=== PATIENT | male | born 1960 ===

== ENCOUNTER 2019-03-25 18:17 | Inpatient (IN) | payer SELFPAY ==
[2019-03-25] MEDS ORDERED: fentaNYL (PF) 50 MCG/ML 2 ML AMP ONE (18:31)
[2019-03-25] MEDS: MIDAZOLAM PF (FBP) 2 MG/2 ML VIAL IV ONE ×4 (18:35→19:11)
[2019-03-25] MEDS: fentaNYL (PF) 50 MCG/ML 2 ML AMP IV ONE ×2 (18:35→18:49)
[2019-03-25] MEDS ORDERED: LIDOCAINE 1% INJ 10MG/ML (20 ML MDV) SQ ONE (18:40)
[2019-03-25] MEDS ORDERED: METOPROLOL TARTRATE 5 MG/5 ML VIAL IVP ONE ×2 (18:40→18:44)
[2019-03-25] MEDS ORDERED: SODIUM CHLORIDE 0.9% 500 ML 500 ML IV ONE (18:48)
[2019-03-25] MEDS ORDERED: BIVALIRUDIN BOLUS 250 MG/50 ML IV ONE (19:00)
[2019-03-25] MEDS ORDERED: SODIUM CHLORIDE 0.9% IV ONE (19:01)
[2019-03-25] MEDS ORDERED: BIVALIRUDIN IV ONE (19:01)
[2019-03-25] MEDS ORDERED: IOPAMIDOL-370 125ML BTL INJ ONE ×2 (19:03→20:10)
[2019-03-25] MEDS ORDERED: FUROSEMIDE 10 MG/ML 4 ML VIAL ONE (19:10)
[2019-03-25] MEDS: FUROSEMIDE 10 MG/ML 4 ML VIAL IV ONE ×2 (19:11→19:37)
[2019-03-25] MEDS ORDERED: MORPHINE SULFATE 4 MG/ML SYRINGE ONE (19:15)
[2019-03-25] MEDS ORDERED: ONDANSETRON 4 MG/2 ML VIAL ONE ×2 (19:17→19:21)
[2019-03-25] MEDS ORDERED: ONDANSETRON 4 MG/2 ML VIAL IVP ONE (19:19)
[2019-03-25] MEDS ORDERED: NOREPINEPHRINE 1 MG/ML 4 ML VIAL IV ONE (19:35)
[2019-03-25] MEDS ORDERED: SODIUM CHLORIDE 0.9% 1,000 ML BAG ONE (19:35)
[2019-03-25] MEDS ORDERED: EPINEPHrine 1 MG/ML (MDV) 30 ML VIAL ONE (19:35)
[2019-03-25] MEDS ORDERED: SODIUM BICARB 8.4% 50 ML SYR (1 MEQ/ML) ONE (19:35)
[2019-03-25] MEDS ORDERED: ATROPINE SULFATE 0.1 MG/ML 10ML SYRINGE ONE (19:35)
[2019-03-25] MEDS ORDERED: EPINEPHrine 10 ML SYRINGE (0.1 MG/ML) ONE (19:35)
[2019-03-25] MEDS ORDERED: SODIUM CHLORIDE 0.9% 250 ML BAG ONE ×2 (19:35)
[2019-03-25] MEDS ORDERED: BIVALIRUDIN 250 MG in SODIUM CHLORIDE 0.9% 50 ML IV ONE (20:00)
[2019-03-25] MEDS ORDERED: SODIUM CHLORIDE 0.9% 1,000 ML IV ONE (20:11)
--- NOTE | 2019-03-25 20:50 | P.CRDCN ---
History of Present Illness Consult date: 03/25/19 Chief complaint: Ongoing chest pain History of present illness: This is a 58-year-old gentleman with a past medical history significant for morbid obesity, diabetes, hypertension, dyslipidemia, and significant family history of coronary artery disease was transferred from [facility] to [facility] with acute ST segment elevation myocardial infarction. Around 4:00 this afternoon, I was paged to the emergency room at [facility]. I called back and I was told that there is a patient at [facility] emergency department need to be transferred to [facility]. I did call the emergency department at [facility] and I spoke with the emergency room physician within for the about the patient. The patient presented to the emergency room with chest discomfort. He described the discomfort as a pressure, in the mid of the chest, with radiation to the left arm, and was intermittent in the beginning but later on started becoming ongoing chest discomfort. The chest discomfort was going on for the last several months. As a matter of fact the patient was camping with his family several weeks ago when he was complaining of the chest discomfort. I was told that the EKG was performed at [facility] revealed acute anterior ST elevation myocardial infarction with also finding of wide-complex rhythm. The EKG didn't show as a matter of fact wide-complex QRS with QS pattern. But because of the ongoing chest discomfort with decided to take the patient to the cardiac cath immediately. I was told also by the emergency room physician that the patient has been there for about 10 minutes only and he can be transferred to [facility] in about 50 minutes to 60 minutes. Because of that I decided to transfer the patient to the [facility] at [facility]. The patient underwent a heart catheterization which revealed chronic total occlusion of the right coronary artery in the midportion with severe disease involving the proximal to midright coronary artery. The RCA was feeling was some collateral from the left coronary system. The left main coronary artery is mildly diseased. The left circumflex has mild to moderate diffuse disease. The left anterior descending artery has superior takeoff and tortuous proximal portion with critical disease involving the ostium and proximal portion and intermediate disease involving the midportion. Because the patient was morbidly obese and because of the poorly opacified artery, I was unable to tell in the beginning which lesion is the culprit lesion. Because of that I did quickly attempt balloon angioplasty on the right coronary artery but the wire was not crossing the lesion and at that point and you that the culprit lesion would be the LAD. I did engage the left main using JL4 guide. I did wire the LAD using a long whisper J-wire. The wire was positioned in the distal LAD. 2 5 x 12 mm balloon was advanced to the lesion in the ostial and proximal left anterior descending artery with difficulties. At that point I did inflated the balloon under 12 clarita for about 30 seconds. At that point I attempted advancing 30 by 18 mm Xience CHALO to the ostial and proximal left anterior descending artery but the stent will not cross the left main to the LAD because of the tortuous and calcified lesion in the LAD. I attempted advancing the stent with adjunctive use of guide liner and in spite of that I was unable to advance the stent to the lesion in the ostial and proximal left anterior descending artery. At that point I decided to double wire the LAD and use a lucrecia wire which was a run- through wire. The wire was advanced to the distal left anterior descending artery. With that, I attempted advancing the stent again but the stent won't cross the lesion in the LAD. Then I decided to balloon the lesion again this time using 30 by 15 mm balloon. With difficulties, I was able to get the balloon to the lesion in the proximal left anterior descending artery and I did balloon angioplasty where the balloon was inflated under 14 clarita for 20 seconds. Subsequently I attempted advancing the stent again but the stent won't cross the lesion. I pulled a lucrecia wire out and I attempted using the guide liner again but again the stent won't cross the lesion to the proximal LAD. Please note, that throughout the procedure, the patient was very agitated and moving all over the place is in spite of the sedation. He was feeling nauseated and he was given antinausea medication. Also I gave the patient Lasix IV. He was given multiple doses of severe [place] medication. In spite of all that the patient was very agitated during the whole procedure. Suddenly the patient became severely bradycardic and hypotensive. I gave the patient atropine and attempted injecting contrast to see what the angiogram which showed that the guide was out of the left main and CPR was initiated. We did perform CPR on the patient. ACLS protocol for 45 minutes. Anesthesia was called and the code was called as well. In spite of that, the patient did not make it. The family was informed about the results of the angiogram in details and also the outcome of the case. Please note that throughout the procedure and because the patient agitation with cold anesthesia 2, and sedated and intubated the patient but unfortunately anesthesia was in the middle of the case and normally was available to come to the room. Medications and Allergies Allergies Allergy/AdvReac Type Severity Reaction Status Date / Time No Known Allergies Allergy Verified 03/25/19 18:46 Physical Exam Vitals: Intake and Output 03/25/19 03/25/19 03/25/19 06:59 14:59 22:59 Intake Total 475 Balance 475 Intake: IV 475 Other: Weight 165.873 kg - Constitutional General appearance: morbidly obese, severe distress Results Intake and Output 03/25/19 03/25/19 03/25/19 06:59 14:59 22:59 Intake Total 475 Balance 475 Intake: IV 475 Other: Weight 165.873 kg Patient Weight 03/26/19 06:59 Weight 165.873 kg
--- NOTE | 2019-03-25 22:12 | CC ---
CARDIAC CATHETERIZATION REPORT PERFORMING PHYSICIAN: Trae Moss MD, asbestos abatement technician. PROCEDURES PERFORMED: 1. Selective right and left coronary angiogram. 2. Balloon angioplasty of the ostial and proximal left anterior descending artery. INDICATION: This is a 58-year-old gentleman with morbid obesity, diabetes, hypertension, dyslipidemia and a significant history of smoking who presented initially to [facility] with chest discomfort which was ongoing. The EKG was concerning for acute ST- segment-elevation myocardial infarction. Because of that, he was transferred to [facility] for further evaluation and emergent heart catheterization. APPROACH: Right common femoral artery. COMPLICATIONS: Cardiac arrest and . PROCEDURE DESCRIPTION: After obtaining informed consent, the patient was brought to the cardiac label tacker. The right common femoral artery was cannulated using micropuncture technique. The micropuncture wire passed easily. Then I placed a 6-[place]awk sheath 11 cm in the right common femoral artery. I did selective right and left coronary angiogram using JR4 and JL4 catheters. Left heart catheterization was not performed because we decided to intervene on the LAD. After that I did intervene on the LAD. Please see a separate paragraph for that. SELECTIVE CORONARY ANGIOGRAM: 1. The right coronary artery is a large-caliber vessel and it is a dominant vessel. The RCA seems to be chronically occluded in the mid to distal portion and fills by collaterals from the left coronary system. The proximal to mid RCA appeared to have a severe lesion that appeared to be in the range of 70%. 2. The left main has mild disease only that appeared to be in the range of 20% to 30%. It bifurcates into left circumflex, ramus intermedius and left anterior descending artery. 3. The left circumflex is a moderate- to large-caliber vessel. It is a nondominant vessel. The left circumflex in the proximal portion has a lesion that appeared to be in the range of 50%. In the mid portion it has another lesion that appeared to be in the range of 50% and gives rise to an OM branch which appeared to have mild disease only. The circumflex continues after that as a small-caliber vessel in the AV groove. 4. The ramus intermedius is a large-caliber vessel with mild to moderate diffuse disease only. 5. The LAD. The ostial LAD appeared to have a lesion in the range of 70% to 80%. The mid LAD has another lesion that appeared to be in the range of 50%. This is by the bifurcation of the first diagonal branch, which has a lesion that appeared to be in the range of 80%. The LAD in the mid to distal portion has another lesion that appeared to be in the range of 70% to 80% as well. The LAD distally does reach the apex. PERCUTANEOUS CORONARY INTERVENTION OF THE LEFT ANTERIOR DESCENDING CORONARY ARTERY: Anticoagulation was initiated using Angiomax. Subsequently I did engage the left main using JL4 guide. I did wire the LAD using a long Whisper wire which was a Whisper J wire. I tried to advance x 12 mm balloon to the ostial and proximal left anterior descending artery, but I had difficulties. Finally I was able to get the balloon, where I did balloon angioplasty of that lesion and the balloon was inflated under 12 atmospheres for 20 seconds. After that I attempted advancing 3.0 x 18 mm stent to the proximal LAD, but the stent would not cross the lesion from the left main to the LAD. I attempted advancing the stent with adjunctive use of GuideLiner and I was unable. At that point, I pulled the GuideLiner out and I wired the LAD with a lucrecia wire which was a run-through wire. With that I attempted advancing the stent, but the stent would again not cross the lesion. Then I decided to balloon the LAD again, and at that point I ballooned the LAD using 3.0 x 15 mm balloon where the balloon was inflated again under 12 atmospheres for 20 seconds. Again the stent would not cross the lesion after the second balloon angioplasty, in spite of adjunctive use of GuideLiner. Please note that the patient was severely agitated throughout the procedure. He was feeling nauseated and he was given anti-nausea medication. He was very agitated and he was given anti-anxiety medication. He was moving all over the place. Suddenly the patient went bradycardic as well as hypotensive. CPR was initiated and continued for 45 minutes. We did ACLS protocol CPR. Unfortunately the patient did not make it. We did perform the CPR for 45 minutes exactly. MMELINL / IJN: [id number] /
== END 2019-03-25 20:16 | disposition expired | DRG 251 ==
LOC: 2SICU 18:28 → UNDODISIN 20:16
PROVIDERS: ADMIT Internal Medicine Interventional Cardiology; ATTEND Internal Medicine Interventional Cardiology
PROC: 0BH17EZ Insertion of Endotracheal Airway into Trachea, Via Natural or Artificial Opening (ICD-10-PCS; 2019-03-25)
PROC: 5A1935Z Respiratory Ventilation, Less than 24 Consecutive Hours (ICD-10-PCS; 2019-03-25)
PROC: 02703ZZ Dilation of Coronary Artery, One Artery, Percutaneous Approach (ICD-10-PCS; principal; 2019-03-25 18:25)
PROC: B2111ZZ Fluoroscopy of Multiple Coronary Arteries using Low Osmolar Contrast (ICD-10-PCS; 2019-03-25 18:25)
PROC: 5A12012 Performance of Cardiac Output, Single, Manual (ICD-10-PCS; 2019-03-25 18:25)
DX: I21.09 ST elevation (STEMI) myocardial infarction involving other coronary artery of anterior wall (principal); Z68.43 Body mass index [BMI] 50.0-59.9, adult; I46.2 Cardiac arrest due to underlying cardiac condition; I95.9 Hypotension, unspecified; E66.01 Morbid (severe) obesity due to excess calories; E11.9 Type 2 diabetes mellitus without complications; I25.10 Atherosclerotic heart disease of native coronary artery without angina pectoris; I25.84 Coronary atherosclerosis due to calcified coronary lesion; I10 Essential (primary) hypertension; E78.5 Hyperlipidemia, unspecified; R00.1 Bradycardia, unspecified; R11.0 Nausea; R45.1 Restlessness and agitation; Z87.891 Personal history of nicotine dependence; Z82.49 Family history of ischemic heart disease and other diseases of the circulatory system
CPT/HCPCS: 92920; 92950; 93454; 94002; C1874